=== PATIENT | male | born 1990 | race Two or more races ===

== ENCOUNTER 2025-02-28 17:16 | Emergency (ER) | payer MEDICAID, SELFPAY ==
[2025-02-28 17:33] VITALS: BP 148/83; PULSE 107; RESP 18; TEMP 39.3; O2SAT 98; BMI 27.8
--- NOTE | 2025-02-28 17:51 | XR_ITS ---
EXAMINATION: PA chest single view TECHNIQUE: Upright PA chest single view Date and time: February 28, 2025, 1754 hours INDICATIONS: Fever coughing beginning today. FINDINGS: Normal heart size Lungs are clear. Osseous structures are intact IMPRESSION: No active disease
--- NOTE | 2025-02-28 17:52 | PD.EDADULT ---
ED General RME/HPI General Chief complaint: General Adult/Misc Complain Stated complaint: FEELS FEVERISH, BODY ACHES Time Seen by Provider: 02/28/25 17:44 Arrival date/time: 02/28/25 17:16 34-year-old male patient who came in for evaluation regarding flulike symptoms. Onset of symptoms in early today as fever, sore throat, cough, vomiting, and diarrhea. Severity of symptoms moderate. Patient is denying any abdominal pain. Denies any chest pain coughing. Denies any other complaints denies any ill contacts. No medication was taken prior to ER visit. Related Data Previous Rx's ?Medication ?Instructions ?Recorded ibuprofen 800 mg tablet 800 mg PO TID PRN pain #30 tabs 02/28/25 ondansetron HCl 4 mg tablet 4 mg PO Q8H PRN nausea and 02/28/25 vomiting 5 days #30 tabs Allergies Allergy/AdvReac Type Severity Reaction Status Date / Time No Known Allergies Allergy Verified 02/28/25 17:20 Review of Systems Review of Systems Narrative Review of Systems: Review of system reviewed and within normal limits except mentioned in HPI ED Exam Narrative Physical exam: VITAL SIGNS: Reviewed. GENERAL APPEARANCE: Alert and interactive, follows commands, no acute distress, HEAD AND FACE: Non-traumatic. ENT: PERRL, pink conjunctivitis, eyelid no trauma, Mucous membrane moist. NECK: Supple, nontender, no nuchal rigidity. CHEST: No tenderness, no crepitus, no paradoxical movement, no retractions. LUNGS: Clear, well ventilated, symmetric, no rales, no wheezing, no ronchi, no stridor, good breath sounds bilaterally. HEART: Regular rate, regular rhythm, no murmur, no gallops. ABDOMEN: Soft, positive bowel sounds, nondistended, no guarding, nontender, no rebound, no masses, RECTAL: Deferred. GENITAL: Deferred. NEUROLOGICAL: Gross motor function intact sensory function intact, Appropriate for age. MUSCULOSKELETAL: low back nontender, full range of motion. EXTREMITIES: Nontender, full range of motion. SKIN: Color pink, dry, no rash, no lacerations, no abrasions, no contusions. LYMPHATICS: Deferred. Course Quality Measures none Orders Category Date Time Status Bedside COVID-19 Antigen Test NOW Care 02/28/25 17:50 Active Bedside Influenza A&B Antigen Test NOW Care 02/28/25 17:51 Completed Bedside STREP Test NOW Care 02/28/25 17:50 Completed XR chest 1V Stat Exams 02/28/25 17:51 Completed Acetaminophen Tab [Tylenol ES Tab] Med 02/28/25 17:50 Discontinued 1,000 mg PO X1 ONE Diphenoxylate/Atrop Sulf [Lomotil] Med 02/28/25 17:50 Discontinued 1 tab PO X1 ONE Ibuprofen Tab [Motrin Tab] Med 02/28/25 17:51 Discontinued 800 mg PO X1 ONE Ondansetron Odt [Zofran Odt] Med 02/28/25 17:50 Discontinued 4 mg PO X1 ONE Vital Signs Vital signs: Vital Signs Temperature 102.8 F H 02/28/25 17:33 Pulse Rate 107 H 02/28/25 17:33 Respiratory Rate 18 02/28/25 17:33 Blood Pressure 148/83 H 02/28/25 17:33 Pulse Oximetry (%) 98 02/28/25 17:33 Oxygen Delivery Method Room Air 02/28/25 17:33 Discharge Plan Plan Patient Disposition: HOME (Self Care) Discharge Disposition comment: stable Prescriptions/Referrals Prescriptions/Med Rec: New ondansetron HCl 4 mg tablet 4 mg PO Q8H PRN (Reason: nausea and vomiting) 5 Days Qty: 30 0RF ibuprofen 800 mg tablet 800 mg PO TID PRN (Reason: pain) Qty: 30 0RF Referrals: No Primary/Family,Physician [Primary Care Provider] - In 1 week Problem List Clinical Impression: URI (upper respiratory infection) Patient/Caregiver Discharge Instructions Discharge Activity: activity as tolerated Education Materials: ED URI, Viral, No Abx (Adult) Additional Instructions: Thank you for the opportunity for serving you today. You are stable for discharged . You are advised to: Follow-up with your PCP in 1 to 2 days Return to ED for worsening of symptoms Increase oral fluids Take medication as prescribed Print Language: Hong Konger Stand Alone Forms: [employer] Award Info., Patient Portal Info Letter PA/FACILITIES PAINTER Supervising Physician CHARLIE/FACILITIES PAINTER Supervising Physician: MD Johnathan MDM Narrative MDM hospital course (for use when minimal MDM required): 34-year-old male patient who came in for evaluation regarding flulike symptoms. Onset of symptoms in early today as fever, sore throat, cough, vomiting, and diarrhea. Severity of symptoms moderate. Patient is denying any abdominal pain. Denies any chest pain coughing. Denies any other complaints denies any ill contacts. No medication was taken prior to ER visit. Patient tested negative for COVID and influenza. Chest x-ray also came back unremarkable. Results discussed with the patient. Patient was noted to be afebrile, patient is probably having viral URI versus gastroenteritis. Patient stable for discharge home Medication Administration(s) Medication Administration History Discontinued Medications Acetaminophen (Acetaminophen 500 Mg Tablet) 1,000 mg PO X1 ONE Stop: 02/28/25 17:51 Last Admin: 02/28/25 19:07 Dose: 1,000 mg Documented By: Diphenoxylate HCl/Atropine (Diphenoxylate/Atrop Sulf 1 Tab) 1 tab PO X1 ONE Stop: 02/28/25 17:51 Last Admin: 02/28/25 19:10 Dose: 1 tab Documented By: Ibuprofen (Ibuprofen Tab 400 Mg Tablet) 800 mg PO X1 ONE Stop: 02/28/25 17:52 Last Admin: 02/28/25 19:09 Dose: 800 mg Documented By: Ondansetron HCl (Ondansetron Odt 4 Mg Tabrap) 4 mg PO X1 ONE; Protocol Stop: 02/28/25 17:51 Last Admin: 02/28/25 19:10 Dose: 4 mg Documented By: Diagnosis Differential Diagnosis ED Complaint MDM: URI, gastroenteritis, fever, COVID-19, influenza Diagnoses ruled out and/or further discussions: URI
[2025-02-28 19:07] VITALS: TEMP 39.3
[2025-02-28] MEDS: ACETAMINOPHEN 500 MG TABLET 1000 MG PO (19:07)
[2025-02-28 19:09] VITALS: TEMP 39.3
[2025-02-28] MEDS: IBUPROFEN TAB 400 MG TABLET 800 MG PO (19:09)
[2025-02-28] MEDS: DIPHENOXYLATE/ATROP SULF 1 TAB PO (19:10)
[2025-02-28] MEDS: ONDANSETRON ODT 4 MG TABRAP PO (19:10)
[2025-02-28 19:40] VITALS: PULSE 94; TEMP 37.9
[2025-02-28 20:00] VITALS: TEMP 37.9
== END 2025-02-28 20:24 | disposition home or self-care (01) ==
PROVIDERS: Emergency Provider Emergency Medicine
DX: J06.9 Acute upper respiratory infection, unspecified (principal)
CPT/HCPCS: 71045; 87502; 87635; 87651; 99283; Q0162; A9270